=== PATIENT | male | born 1980 | race Caucasian/White ===

== ENCOUNTER 2025-02-06 11:21 | Outpatient (CLI) | payer MEDICAID ==
--- NOTE | 2025-02-06 18:18 | RADIOLOGY REPORT ---
CLINICAL INDICATION: PAIN IN RIGHT SHOULDER COMPARISON: None TECHNIQUE: Multiplanar, multisequence MRI of the right shoulder was performed without contrast. Contrast: None FINDINGS: Glenohumeral joint: There is no fracture or bone marrow edema. Alignment is maintained. No focal a rticular cartilage defect. There is an osteophyte in the medial humeral head. There is no joint effu jasper or synovitis. Acromioclavicular joint: The acromioclavicular joint is narrowed with capsular hypertrophy. There is a type 2 acromion. Rotator cuff and bursae: There is supraspinatus tendinosis and infraspinatus tendinosis. There is fra tam of the articular surface fibers of infraspinatus without a full-thickness tear. Subscapularis an d teres minor tendons are intact. There is no regional muscle atrophy. There is fluid in the suba cromial subdeltoid bursa. Biceps tendon and glenoid labrum: The long head biceps tendon is located within the bicipital groove and intact. The labrum is unremarkable. IMPRESSION: 1. Supraspinatus and infraspinatus tendinosis. Fraying of the infraspinatus articular surface fibers. No evidence of full-thickness rotator cuff tear in the right shoulder. 2. Mild subacromial subdeltoid bursitis. AC joint arthrosis. 3. Mild glenohumeral joint arthrosis.
== END 2025-02-06 23:59 | disposition home or self-care (01) ==
LOC: MRI02 11:21
PROVIDERS: ATTEND Student in an Organized Health Care Education/Training Program
DX: M19.011 Primary osteoarthritis, right shoulder (principal); M25.511 Pain in right shoulder; M75.101 Unspecified rotator cuff tear or rupture of right shoulder, not specified as traumatic; M25.711 Osteophyte, right shoulder; M75.51 Bursitis of right shoulder
CPT/HCPCS: 73221